=== PATIENT | male | born 1985 | race Caucasian/White ===

== ENCOUNTER 2019-11-11 08:12 | Day surgery (SDC) | payer MEDICAID ==
[~2019-11-11] VITALS: Ht 172.7 cm; Wt 102.2 kg
[2019-11-11 09:06] VITALS: BP 140/98; PULSE 87; TEMP 99.1
[2019-11-11] MEDS ORDERED: GLUCOPHAGE XR500 M1 PO (09:06)
[2019-11-11] MEDS ORDERED: MACROBID 1100 MG/CAP PO (09:06)
[2019-11-11] MEDS ORDERED: PRINIVIL10 MG PO (09:06)
[2019-11-11 11:50] VITALS: BP 108/60; PULSE 68; TEMP 97.6
--- NOTE | 2019-11-11 11:50 | NUR ---
Patient arrives to [facility] via cart, accompanied by MOTEL MANAGER Barbara. He is alert and oriented, lying in bed. Monitoring is applied - VSS and WNL on room air. Shortly after arriving, he complains of dizziness. HOB is lowered, Vitals re-checked (VSS and WNL on RA - BP 119/69, 96% SpO2, 72 HR), IVF opened up, and patient given apple juice and crackers with PB (BG in the 80s in the PACU). After a few minutes, and after eating/drinking snacks, he states he is feeling better. He requests to use the restroom. He sits on the side of the bed without dizziness. He ambulates with standby assist to the restroom, voids large amt of pink urine with some small clots, and returns to room. Monitoring is reapplied. is brought to the bedside.
[2019-11-11 12:05] VITALS: BP 115/66; PULSE 78
--- NOTE | 2019-11-11 12:05 | NUR ---
VSS and WNL on room air. Patient is resting comfortably in room.
[2019-11-11 12:20] VITALS: BP 121/76; PULSE 65
[2019-11-11 12:25] VITALS: TEMP 98.2
--- NOTE | 2019-11-11 12:35 | NUR ---
Patient calls nursing staff in room and states he is having pain and would like to go to the restroom. He ambulates to the restroom, voids, and returns to room. He states that the pain is improved after voiding, but still there. Dr. Crum is called for PO medication orders - TORB received for [place] and Flomax. These are given to the patient.
[2019-11-11 12:50] VITALS: BP 119/69; PULSE 71
--- NOTE | 2019-11-11 12:50 | NUR ---
Patient is resting comfortably. He is still clammy. No longer dizzy. BG checked and is stable in the 80s. He is given a muffin and more juice.
--- NOTE | 2019-11-11 13:06 | NUR ---
CHecked on patient regarding dizziness. He states he is feeling "much better" after eating/drinking.
--- NOTE | 2019-11-11 13:25 | NUR ---
Patient is resting comfortably in room. Denies nausea. States pain has much improved, only mild now. He states he is ready to go home to rest. He has met discharge criteria. He will continue to monitor his blood sugar at home with home glucometer. PIV is removed with catheter intact and hemostasis achieved. Discharge instructions are discussed. He denies any questions and verbalizes understanding. He changes to his clothing independently. He is escorted to the exit via wheelchair. He is discharged to home with ride in private vehicle at 1325.
== END 2019-11-11 13:25 | disposition home or self-care (01) ==
LOC: SDCO 08:12
DX: N30.81 Other cystitis with hematuria (principal); E11.9 Type 2 diabetes mellitus without complications; G47.33 Obstructive sleep apnea (adult) (pediatric); K21.9 Gastro-esophageal reflux disease without esophagitis; F41.9 Anxiety disorder, unspecified; F43.10 Post-traumatic stress disorder, unspecified; F17.210 Nicotine dependence, cigarettes, uncomplicated; Z79.84 Long term (current) use of oral hypoglycemic drugs; Z79.899 Other long term (current) drug therapy; Z88.1 Allergy status to other antibiotic agents; Z83.3 Family history of diabetes mellitus; Z82.49 Family history of ischemic heart disease and other diseases of the circulatory system
CPT/HCPCS: J0690; J2405; J2704; J3010; J7120; Q9967